=== PATIENT | female | born 1955 | race Caucasian/White ===

== ENCOUNTER 2017-09-05 11:27 | Inpatient (IN) | payer BC ==
[~2017-09-05] VITALS: Ht 167.6 cm; Wt 97.1 kg
[~2017-09-05 11:27] MED LIST: ALPR.5 PO; BUSP1TAB PO; CITA20TA4 PO; FERRPOW60 PO; LEVO100T5 PO; LIOT25 PO; OMEP20TA93 PO; WARF-21 PO
[2017-09-05] MEDS ORDERED: GENTAMICIN SULFATE 80 MG/2 ML VIAL ONE (12:37)
[2017-09-05] MEDS ORDERED: ceFAZolin 2 GM PREMIX 50 ML IV SCH (13:00)
[2017-09-05] MEDS ORDERED: CHLORHEXIDINE GLUCONATE 4% SOLN 120 ML BTL TOPICAL SCH (13:00)
[2017-09-05] MEDS ORDERED: VANCOMYCIN 1000 MG/NS 250 ML (for <70 kg) IV SCH ×2 (13:00)
[2017-09-05] MEDS ORDERED: ACETAMINOPHEN 1000 MG/100 ML 100 ML IV ONE (13:47)
[2017-09-05] MEDS ORDERED: FAMOTIDINE 20 MG/2 ML VIAL ONE (13:48)
[2017-09-05] MEDS ORDERED: APREPITANT 40 MG CAP ONE (14:10)
[2017-09-05] MEDS ORDERED: SCOPOLAMINE 1.5 MG PATCH ONE (14:10)
--- NOTE | 2017-09-05 16:26 | HHI.PR ---
Immediate Post Op Note Procedure Date: Sep 05, 2017 Pre Op Diagnosis: (1) Osteoarthritis of left hip (2) Acetabular dysplasia Post Op Diagnosis: (1) Osteoarthritis of left hip (2) Acetabular dysplasia Surgeon: Frandy Meneses M.D. Adult [facility] Pediatric Neurologist(s): Xochitl Steward PA-C Procedure: L GILMAR Complications: none Estimated blood loss: 600 cc Anesthesia: General Drains: None Patient to: PACU Patient Condition: Good Implant/Devices: SEE IMPLANT LOG (if applicable) Date/Time of Procedure: SEE SURGICAL CARE RECORD Frandy Meneses MD Sep 05, 2017 16:26
[2017-09-05] MEDS ORDERED: DO NOT ADM ANY ANTICOAGULANT DRUGS PRN (16:28)
--- NOTE | 2017-09-05 16:29 | HHI.FF ---
Face to Face Verification Diagnosis: (1) Osteoarthritis of left hip Physical Therapy Gait training, Transfer training, bed to chair Hip: Total hip, Protocol: Left, Posterior hip precautions Right LE Weight Bearing: WB as tolerated Left LE Weight Bearing: WB as tolerated Nursing RN Days per Week: 3 x Week(s): 4 Nursing: Dressing changes (clean incision with alcohol and apply dry, sterile dressing ) Additional Instructions Pt/INR q Tuesday and , call/text results to [facility] cell [phone] Goal INR 1.5-1.8 I have seen patient Abbie Garcia on 09/05/17. My clinical findings support the need for the requested home health care services because: Deconditioned w/ increased weakness High risk of falls I certify that my clinical findings support that this patient is homebound because: Post-op weakness Frandy Meneses MD Sep 05, 2017 16:29
[2017-09-05] MEDS ORDERED: ALUMINUM/MAGNESIUM/SIMETH 30 ML CUP PO PRN (16:30)
[2017-09-05] MEDS ORDERED: ALPRAZolam 0.5 MG TAB PO PRN (16:30)
[2017-09-05] MEDS ORDERED: ZOLPIDEM TARTRATE 5 MG TAB PO PRN (16:30)
[2017-09-05] MEDS ORDERED: Post-op Orders (for Pharmacy) MISC XX ONE (16:30)
[2017-09-05] MEDS ORDERED: ACETAMINOPHEN/HYDROcodone 325 MG/7.5 MG TAB PO PRN (16:30)
[2017-09-05] MEDS ORDERED: MORPHINE SULFATE 8 MG/ML INJ IM PRN (16:30)
[2017-09-05] MEDS ORDERED: ONDANSETRON HCL 4 MG/2 ML VIAL IVP PRN (16:30)
[2017-09-05] MEDS ORDERED: WALKER WHEELS/F1 MIS (16:30)
[2017-09-05] MEDS ORDERED: BEDSIDE COMMODE1 MI1 (16:30)
[2017-09-05] MEDS ORDERED: *PROMETHAZINE 25 MG/ML VIAL PERIprocedural use ONLY ONE (16:31)
[2017-09-05] MEDS ORDERED: *morphine SULFATE 8 MG/ML PERIprocedure ONLY ONE ×3 (16:44→17:59)
[2017-09-05] MEDS: LACTATED RINGER'S 1000 ML INJ 1,000 ML IV SCH (17:00)
[2017-09-05] MEDS ORDERED: PILL SPLITTER OTHER PRN (17:15)
--- NOTE | 2017-09-05 17:55 | RADRPT ---
EXAM DATE/TIME: 09/05/2017 16:54 [place] COMPARISON: No previous studies available for comparison. INDICATIONS : Post op left hip. MEDICAL HISTORY : None. SURGICAL HISTORY : None. ENCOUNTER: Initial ACUITY: 1 day PAIN SCORE: Non-responsive. LOCATION: Left hip. FINDINGS: AP view of the pelvis with lateral view of the left hip joint demonstrates a left hip bipolar arthrop lasty hardware present. There is surrounding soft tissue gas. Degenerative changes are present the pu bic symphysis. No unexpected finding is seen. CONCLUSION: Expected findings following left bipolar hip arthroplasty. Jb Jacinto MD on September 05, 2017 at 17:49 Board Certified Radiologist. This report was verified electronically.
[2017-09-05 20:55] VITALS: BP 135/85; PULSE 92; RESP 17; TEMP 96.7; O2SAT 98
[2017-09-05] MEDS: CITALOPRAM HYDROBROMIDE 20 MG TAB PO SCH (21:58)
[2017-09-05] MEDS: busPIRone HCL 5 MG TAB PO SCH (21:58)
[2017-09-05] MEDS: ACETAMINOPHEN/HYDROcodone 325 MG/7.5 MG TAB PO PRN (21:59)
[2017-09-05] MEDS: PANTOPRAZOLE SOD 20 MG DELAYED RELEASE TAB PO SCH (21:59)
[2017-09-05] MEDS: LIOTHYRONINE SODIUM 25 MCG TAB PO SCH (21:59)
[2017-09-06 00:50] VITALS: BP 102/72; PULSE 108; RESP 17; TEMP 97.9; O2SAT 94
[2017-09-06 04:45] VITALS: BP 128/78; PULSE 104; RESP 17; TEMP 99.4; O2SAT 94
[2017-09-06] MEDS: LEVOTHYROXINE SODIUM 100 MCG TAB PO SCH (05:08)
[2017-09-06] MEDS: LACTATED RINGER'S 1000 ML INJ 1,000 ML IV SCH ×3 (05:09→21:17)
[2017-09-06 05:52] LABS: HEMATOCRIT 27.9 % (35.0-46.0); REVIEW FLAG FINAL
[2017-09-06 05:56] LABS: INTERNATIONAL NORMALIZED RATIO 1.1 RATIO; PROTHROMBIN TIME - PATIENT 11.5 SEC (9.8-11.6)
[2017-09-06] MEDS: ACETAMINOPHEN/HYDROcodone 325 MG/7.5 MG TAB PO PRN ×2 (06:03→20:52)
--- NOTE | 2017-09-06 07:33 | PD.ORT.PN ---
Subjective Subjective Remarks POD#1 L THR C/O nausea No chest pain;no sob Objective Vitals Vital Signs Date Time Temp Pulse Resp B/P (MAP) Pulse Ox O2 Delivery O2 Flow Rate FiO2 09/06/17 04:45 99.4 104 17 128/78 (95) 94 09/06/17 00:50 97.9 108 17 102/72 (82) 94 09/05/17 20:55 96.7 92 17 135/85 (102) 98 09/05/17 18:25 97.6 60 16 126/66 (86) 97 Room Air 09/05/17 18:00 64 16 124/66 (85) 97 Room Air 09/05/17 17:45 62 16 122/63 (82) 96 Room Air 09/05/17 17:30 97.6 66 16 121/65 (83) 96 Room Air 09/05/17 17:26 15 09/05/17 17:15 67 15 117/69 (85) 95 Room Air 09/05/17 17:00 65 15 115/65 (82) 95 Nasal Cannula 2 09/05/17 16:49 15 09/05/17 16:45 66 15 109/63 (78) 99 Nasal Cannula 2 09/05/17 16:30 69 15 111/60 (77) 97 Nasal Cannula 2 09/05/17 16:25 97.6 75 16 106/51 (69) 100 Nasal Cannula 3 09/05/17 13:03 80 20 132/84 (100) 100 I/O 09/05/17 09/05/17 09/05/17 09/06/17 09/06/17 09/06/17 07:00 15:00 23:00 07:00 15:00 23:00 Intake Total 1660 ml 508 ml Output Total 1900 ml 350 ml Balance -240 ml 158 ml Intake Oral 240 ml 240 ml IV Total 1420 ml 268 ml Output Urine Total 300 ml 350 ml Estimated Blood Loss 600 ml Other 1000 ml Bladder Scan Volume Amount 350 ml # Voids 1 1 # Bowel Movements 0 0 Result Diagram: 09/06/17 0506 Other Results Laboratory Tests Test 09/06/17 05:06 Prothromb Time International Ratio 1.1 RATIO Prothrombin Time 11.5 SEC (9.8-11.6) Objective Remarks N/V intact No LLD No calf tenderness;neg carina's sign Assessment & Plan Assessment and Plan Ortho stable Zofran prn N/V PT/Rehab Coumadin,TEDS,Sequentials for DVT prophylaxsis Probable discharge home tomorrow Frandy Meneses MD Sep 06, 2017 07:33
[2017-09-06 08:00] VITALS: BP 111/66; PULSE 102; RESP 18; TEMP 96.9; O2SAT 93
[2017-09-06] MEDS: CITALOPRAM HYDROBROMIDE 20 MG TAB PO SCH ×2 (08:00→20:50)
[2017-09-06] MEDS: PANTOPRAZOLE SOD 20 MG DELAYED RELEASE TAB PO SCH ×2 (08:00→20:50)
[2017-09-06] MEDS: busPIRone HCL 5 MG TAB PO SCH ×2 (08:00→20:50)
--- NOTE | 2017-09-06 09:22 | MP ---
cc: YOAV BROWN,LYNNE Ahmadi M.D. DATE OF SURGERY 09/05/2017 PREOPERATIVE DIAGNOSES 1. Left hip severe osteoarthritis, acetabular dysplasia. 2. Obesity POSTOPERATIVE DIAGNOSES 1. Left hip severe osteoarthritis, acetabular dysplasia. 2. Obesity PROCEDURE Left total hip arthroplasty. SURGEON Ladi Meneses MD ASSESSMENT Xochitl Steward PA-C SPECIMEN None. ESTIMATED BLOOD LOSS 600 cc COMPLICATIONS None. ANESTHESIA General. DRAIN None. CONDITION Stable. PLAN OF ACTIVITY As per orders. PROCEDURE My psychiatric assistant Xochitl Steward PA-C, was present for the entire surgical case. She was medically necessary for the entire case because of the complexity of the case and to facilitate the performance of the procedure. The JEWELRY CONSULTANT at the back table was not of the skill set for this case to manipulate the instruments e.g. the multiple different soft tissue retractors, trial implants and permanent implants. The patient was brought into the operating room and had satisfactory anesthesia by the Department of Anesthesia. The patient was placed in the lateral decubitus position. All pressure points were well-padded. Great care was taken to protect all soft tissues because of the patient's obesity. The left hip and lower extremity down to and including the toes was prepped and draped in the usual sterile manner. A small posterior lateral exposure to the hip was made, dissection carried through a considerable amount of adipose tissue. The fascia radha and gluteus ray were incised in line with the skin incision. A Charnley retractor was placed in the wound in order to allow better exposure. The short external rotators were removed as a group. The hip abductors were preserved. Capsulotomy was performed. The hip was dislocated posteriorly. The patient was found to have severe osteoarthritis with acetabular dysplasia. Osteotomy was made on the neck at the appropriate level. Exposure to the acetabulum was made. The acetabulum, labrum and capsule were surgically excised. The patient was found to have cystic ganglion formation involving the superior aspect of the labral and capsular region compatible with advanced osteoarthritis with her acetabular dysplasia. The acetabulum was medialized and reamed sequentially to 47 with the 47 reamer. Trial reduction was done with Bicentric cup in press-fit type manner, was found to be stable and satisfactory. Exposure to the femur was done. It was sequentially broached with a #8 broach, standard offset, trial reduction made. With the 28-mm head, 0 neck the patient was found to satisfactory stability of the hip, satisfactory limb length and satisfactory range of motion. The hip was then dislocated again posteriorly and all trial components were removed. Preparation for insertion of the components was done. A #8 Biomet Taperloc stem was placed in anatomic position at approximately 15 degrees of anteversion with excellent "fit and fill", 0 neck, 28-mm ball. Ceramic ball was then assembled onto the trunnion, the hip was then reduced. The patient again was found to have satisfactory limb lengths, satisfactory stability and satisfactory range of motion. The wound was irrigated with copious amounts of sterile saline antibiotic solution. The wound itself was dry. The short external rotators were repaired back to the greater trochanter with drill holes using #2 Ticron suture. The wound was irrigated with copious amounts of saline. The wound itself was dried. The wound was closed in routine manner. The fascia radha and gluteus ray was closed with #2 Ticron suture. The deep layers of adipose tissue were closed in multiple layers using 0 Vicryl. The skin was approximated with interrupted 2-0 nylon. The subcutaneous tissue was closed with interrupted 4-0 Vicryl suture and the skin was approximated with running subcuticular 2-0 nylon. Sterile dressings were applied. The patient tolerated the procedure well and arrived in the recovery room in stable and satisfactory condition. MD CAMILLE De La Vega/SSB /4:20 PM /8:57 AM [facility]
[2017-09-06] MEDS ORDERED: PNEUMOCOCCAL POLYVALENT INJ 25 MCG/0.5 ML SYR IM ONE (10:00)
[2017-09-06 12:00] VITALS: BP 124/65; PULSE 83; RESP 18; TEMP 97.8; O2SAT 94
--- NOTE | 2017-09-06 12:40 | PD.CONS ---
HPI Service [facility] Consult Requested By Dr. Frandy Slaughter Reason for Consult Medical management Primary Care Physician Non-Staff Diagnoses: History of Present Illness This is a 62-year-old female with left hip pain secondary to osteoarthritis and acetabular dysplasia. Underwent hip arthroplasty yesterday by Dr. Slaughter who requested consultation to evaluate and manage multiple medical conditions. Anesthesia records reviewed she was hemodynamically stable received 1200, crystalloid, EBL of 600 mL and urine output of 300 mL. At this time, patient has no complaints. She confirms multiple medical conditions which are hypothyroidism stable on thyroid supplement, GERD asymptomatic on PPI, anxiety and depression stable on BuSpar and Celexa. All other systems reviewed negative Review of Systems Except as stated in HPI: all other systems reviewed are Neg Past Family Social History Allergies: Coded Allergies: erythromycin base (Verified Allergy, Severe, NAUSEA, 09/01/17) Past Medical History As previously mentioned Past Surgical History Left knee replacement, left humeral fracture status post repair, right bunionectomy Reported Medications Reported Meds & Active Scripts Active Reported Warfarin 7.5 Mg Tab 7.5 Mg PO ONCE Xanax (Alprazolam) 0.5 Mg Tab 0.5 Mg PO HS PRN Buspirone (Buspirone HCl) 7.5 Mg Tab 7.5 Mg PO BID Ferrous Bisglycinate Chelate (Bulk) 1 Pow Pow 25 Cap PO BID Citalopram (Citalopram Hydrobromide) 20 Mg Tab 20 Mg PO BID Omeprazole 20 Mg Tab 20 Mg PO BID Levothyroxine (Levothyroxine Sodium) 100 Mcg Tab 100 Mcg PO DAILY Cytomel (Liothyronine Sodium) 25 Mcg Tab 12.5 Mcg PO HS Family History No CVA or IA Social History Does not smoke or drink Physical Exam Vital Signs Vital Signs Date Time Temp Pulse Resp B/P (MAP) Pulse Ox O2 Delivery O2 Flow Rate FiO2 09/06/17 08:00 96.9 102 18 111/66 (81) 93 09/06/17 07:56 16 09/06/17 04:45 99.4 104 17 128/78 (95) 94 09/06/17 00:50 97.9 108 17 102/72 (82) 94 09/05/17 20:55 96.7 92 17 135/85 (102) 98 09/05/17 18:25 97.6 60 16 126/66 (86) 97 Room Air 09/05/17 18:00 64 16 124/66 (85) 97 Room Air 09/05/17 17:45 62 16 122/63 (82) 96 Room Air 09/05/17 17:30 97.6 66 16 121/65 (83) 96 Room Air 09/05/17 17:26 15 09/05/17 17:15 67 15 117/69 (85) 95 Room Air 09/05/17 17:00 65 15 115/65 (82) 95 Nasal Cannula 2 09/05/17 16:49 15 09/05/17 16:45 66 15 109/63 (78) 99 Nasal Cannula 2 09/05/17 16:30 69 15 111/60 (77) 97 Nasal Cannula 2 09/05/17 16:25 97.6 75 16 106/51 (69) 100 Nasal Cannula 3 09/05/17 13:03 80 20 132/84 (100) 100 Physical Exam GENERAL: This is a well-nourished, well-developed patient, in no apparent distress. SKIN: No rashes, ecchymoses or lesions. Cool and dry. HEAD: Atraumatic. Normocephalic. No temporal or scalp tenderness. EYES: Pupils equal round and reactive. Extraocular motions intact. No scleral icterus. No injection or drainage. ENT: Nose without bleeding, purulent drainage or septal hematoma. Throat without erythema, tonsillar hypertrophy or exudate. Uvula midline. Airway patent. NECK: Trachea midline. No JVD or lymphadenopathy. Supple, nontender, no meningeal signs. CARDIOVASCULAR: Regular rate and rhythm without murmurs, gallops, or rubs. RESPIRATORY: Clear to auscultation. Breath sounds equal bilaterally. No wheezes , rales, or rhonchi. GASTROINTESTINAL: Abdomen soft, non-tender, nondistended. No guarding. MUSCULOSKELETAL: Extremities without clubbing, cyanosis, or edema. No joint tenderness, effusion, or edema noted. No calf tenderness. Negative Homans sign bilaterally. NEUROLOGICAL: Awake and alert. Cranial nerves II through XII intact. Motor and sensory grossly within normal limits. Five out of 5 muscle strength in all muscle groups. Normal speech. Laboratory Laboratory Tests Test 09/06/17 05:06 Hemoglobin 9.6 Hematocrit 27.9 Prothrombin Time 11.5 Prothromb Time International Ratio 1.1 Result Diagram: 09/06/17 0506 Assessment and Plan Assessment and Plan This is a 62-year-old female with left hip pain secondary to osteoarthritis and acetabular dysplasia. Underwent hip arthroplasty by Dr. Slaughter who requested consultation to evaluate and manage multiple medical conditions. Left hip arthroplasty. Stable continue postoperative care with PT, wound care, pain management with [place] and I be morphine and DVT prophylaxis with Coumadin S Hypothyroidism stable on thyroid supplement GERD asymptomatic on PPI Anxiety and depression stable on BuSpar and Celexa. Anemia secondary to acute blood loss. Hemodynamically stable. Asymptomatic. Continue to monitor Discussed Condition With Patient Solomon Diaz MD Sep 06, 2017 12:40
[2017-09-06 16:00] VITALS: BP 125/68; PULSE 86; RESP 18; TEMP 100.3; O2SAT 93
[2017-09-06] MEDS: WARFARIN SOD 5 MG TAB PO SCH (16:41)
[2017-09-06 20:00] VITALS: BP 140/74; PULSE 82; RESP 20; TEMP 97.3; O2SAT 97
[2017-09-06] MEDS: LIOTHYRONINE SODIUM 25 MCG TAB PO SCH (20:50)
[2017-09-06] MEDS: DOCUSATE SODIUM 100 MG CAP PO SCH (20:50)
[2017-09-06] MEDS ORDERED: MAGNESIUM HYDROXIDE SUSP 30 ML CUP PO PRN (22:15)
[2017-09-07] VITALS: BP 122/68; PULSE 83; RESP 20; TEMP 98.8; O2SAT 97
[2017-09-07] MEDS: ACETAMINOPHEN/HYDROcodone 325 MG/7.5 MG TAB PO PRN ×4 (02:06→17:31)
[2017-09-07] MEDS: LEVOTHYROXINE SODIUM 100 MCG TAB PO SCH (04:33)
[2017-09-07 06:20] LABS: INTERNATIONAL NORMALIZED RATIO 1.6 RATIO; PROTHROMBIN TIME - PATIENT 15.8 SEC (9.8-11.6)
--- NOTE | 2017-09-07 07:49 | PD.ORT.PN ---
Subjective Subjective Remarks pt states she is lightheaded, also states she needs Ensure or Boost b/c has no appetite Objective Vitals Vital Signs Date Time Temp Pulse Resp B/P (MAP) Pulse Ox O2 Delivery O2 Flow Rate FiO2 09/07/17 00:00 98.8 83 20 122/68 (86) 97 09/06/17 20:00 97.3 82 20 140/74 (96) 97 09/06/17 16:00 100.3 86 18 125/68 (87) 93 09/06/17 12:00 97.8 83 18 124/65 (84) 94 09/06/17 08:00 96.9 102 18 111/66 (81) 93 09/06/17 07:56 16 I/O 09/06/17 09/06/17 09/06/17 09/07/17 09/07/17 09/07/17 07:00 15:00 23:00 07:00 15:00 23:00 Intake Total 508 ml 720 ml 220 ml Output Total 350 ml 300 ml 350 ml Balance 158 ml 720 ml -300 ml -130 ml Intake Oral 240 ml 720 ml 220 ml IV Total 268 ml Output Urine Total 350 ml 300 ml 350 ml Bladder Scan Volume Amount 350 ml # Voids 1 3 # Bowel Movements 0 0 0 0 Result Diagram: 09/06/17 0506 Other Results Laboratory Tests Test 09/07/17 05:38 Prothromb Time International Ratio 1.6 RATIO Prothrombin Time 15.8 SEC (9.8-11.6) Objective Remarks sitting up in chair comfortably N/V intact No LLD No calf tenderness;neg carina's sign Assessment & Plan Assessment and Plan POD # 2 s/p L GILMAR CBC pending Ortho stable Ensure or Boost 3-4 x daily PT/Rehab Coumadin,TEDS,Sequentials for DVT prophylaxsis Discharge today if therapy goes well, otherwise discharge home tomorrow with [facility] Xochitl Steward Sep 07, 2017 07:49
[2017-09-07 08:00] VITALS: BP 135/66; PULSE 95; RESP 19; TEMP 99.9; O2SAT 94
[2017-09-07 08:30] VITALS: O2SAT 98
[2017-09-07] MEDS: DOCUSATE SODIUM 100 MG CAP PO SCH (08:50)
[2017-09-07] MEDS: busPIRone HCL 5 MG TAB PO SCH (08:50)
[2017-09-07] MEDS: CITALOPRAM HYDROBROMIDE 20 MG TAB PO SCH (08:50)
[2017-09-07] MEDS: PANTOPRAZOLE SOD 20 MG DELAYED RELEASE TAB PO SCH (08:50)
[2017-09-07] MEDS: WARFARIN SOD 5 MG TAB PO SCH (10:36)
--- NOTE | 2017-09-07 10:40 | HHI.PR ---
Subjective Remarks Follow-up anemia. Complains of dizziness no syncope. She has been ambulating. Discussed with physical therapy and RN Objective Vitals Vital Signs Date Time Temp Pulse Resp B/P (MAP) Pulse Ox O2 Delivery O2 Flow Rate FiO2 09/07/17 08:00 99.9 95 19 135/66 (89) 94 09/07/17 00:00 98.8 83 20 122/68 (86) 97 09/06/17 20:00 97.3 82 20 140/74 (96) 97 09/06/17 16:00 100.3 86 18 125/68 (87) 93 09/06/17 12:00 97.8 83 18 124/65 (84) 94 I/O 09/06/17 09/06/17 09/06/17 09/07/17 09/07/17 09/07/17 07:00 15:00 23:00 07:00 15:00 23:00 Intake Total 508 ml 720 ml 220 ml Output Total 350 ml 300 ml 350 ml Balance 158 ml 720 ml -300 ml -130 ml Intake Oral 240 ml 720 ml 220 ml IV Total 268 ml Output Urine Total 350 ml 300 ml 350 ml Bladder Scan Volume Amount 350 ml # Voids 1 3 # Bowel Movements 0 0 0 0 Result Diagram: 09/06/17 0506 Imaging Last Impressions Hip and Pelvis X-Ray 09/05/17 0000 Signed Impressions: Service Date/Time: Tuesday, September 05, 2017 16:54 - CONCLUSION: Expected findings following left bipolar hip arthroplasty. Jb Jacinto MD Objective Remarks GENERAL: This is a well-nourished, well-developed patient, in no apparent distress. SKIN: No rashes, ecchymoses or lesions. Cool and dry. CARDIOVASCULAR: Regular rate and rhythm without murmurs, gallops, or rubs. RESPIRATORY: Clear to auscultation. Breath sounds equal bilaterally. No wheezes , rales, or rhonchi. GASTROINTESTINAL: Abdomen soft, non-tender, nondistended. No guarding. MUSCULOSKELETAL: Extremities without clubbing, cyanosis, or edema. No joint tenderness, effusion, or edema noted. No calf tenderness. Negative Homans sign bilaterally. NEUROLOGICAL: Awake and alert. Cranial nerves II through XII intact. Motor and sensory grossly within normal limits. Five out of 5 muscle strength in all muscle groups. Normal speech. A/P Assessment and Plan This is a 62-year-old female with left hip pain secondary to osteoarthritis and acetabular dysplasia. Underwent hip arthroplasty by Dr. Slaughter who requested consultation to evaluate and manage multiple medical conditions. Left hip arthroplasty. Stable continue postoperative care with PT, wound care, pain management with [place] and IV morphine and DVT prophylaxis with Coumadin Hypothyroidism stable on thyroid supplement GERD asymptomatic on PPI Anxiety and depression stable on BuSpar and Celexa. Anemia secondary to acute blood loss. Pending CBC. Continue to monitor Dizziness which could be related to anemia. Check orthostatic vital signs and BMP. Fall precautions Solomon Diaz MD Sep 07, 2017 10:40
[2017-09-07 11:56] VITALS: BP_SYST 114; BP_SYST 120; BP_SYST 126; BP_DIAS 60; BP_DIAS 68; BP_DIAS 74; PULSE 93; RESP 20; TEMP 98.6; O2SAT 96
[2017-09-07 13:19] LABS: HEMATOCRIT 24.5 % (35.0-46.0); MEAN CELL VOLUME 91.1 FL (80.0-100.0); MEAN CORPUSCULAR HEMOGLOBIN 31.2 PG (27.0-34.0); MEAN CORPUSCULAR HGB CONC 34.2 % (32.0-36.0); PLATELET COUNT 238 TH/MM3 (150-450); RED BLOOD COUNT 2.69 MIL/MM3 (4.00-5.30); RED CELL DISTRIBUTION WIDTH 14.1 % (11.6-17.2); REVIEW FLAG FINAL; WHITE BLOOD COUNT 11.7 TH/MM3 (4.0-11.0)
[2017-09-07 13:51] LABS: POTASSIUM 4.1 MEQ/L (3.5-5.1)
[2017-09-07 16:00] VITALS: BP 125/80; PULSE 92; RESP 19; TEMP 98.2; O2SAT 94
== END 2017-09-07 17:34 | disposition home health service (06) | DRG 470 ==
LOC: HSDI 11:27 → N06B 18:49
PROVIDERS: ADMIT Orthopaedic Surgery Orthopaedic Surgery of the Spine; ATTEND Orthopaedic Surgery Orthopaedic Surgery of the Spine
PROC: 0SRB03A Replacement of Left Hip Joint with Ceramic Synthetic Substitute, Uncemented, Open Approach (ICD-10-PCS; principal; 2017-09-05 14:18)
DX: M16.12 Unilateral primary osteoarthritis, left hip (principal); E66.9 Obesity, unspecified; D62 Acute posthemorrhagic anemia; F32.9 Major depressive disorder, single episode, unspecified; K21.9 Gastro-esophageal reflux disease without esophagitis; F41.9 Anxiety disorder, unspecified; E03.9 Hypothyroidism, unspecified; Z96.652 Presence of left artificial knee joint; M67.452 Ganglion, left hip; R42 Dizziness and giddiness; Z23 Encounter for immunization; Q65.89 Other specified congenital deformities of hip
CPT/HCPCS: 73501; 80048; 85014; 85018; 85027; 85610; 86850; 86900; 86901; 86920; 90732; 94150; J0131; J0690; J1580; J2270; J2405; J2550; J3370; J7050; J7120; J8501